=== PATIENT | male | born 1950 | race Caucasian/White ===

== ENCOUNTER 2018-03-14 09:55 | Inpatient (IN) | payer MEDICAID ==
[~2018-03-14] VITALS: Ht 180.3 cm; Wt 94.3 kg
[2018-03-14] VITALS (15 sets, daily range): BP systolic 111–155; BP diastolic 73–93
[2018-03-14] MEDS ORDERED: FENTANYL CITRATE/PF 50MCG/ML 2ML VIAL ONE (11:15)
[2018-03-14] MEDS ORDERED: MIDAZOLAM HCL 2 MG/2 ML VIAL ONE (11:15)
[2018-03-14] MEDS ORDERED: LIDOCAINE HCL 1% 20ML VIAL (Pyxis) INJ ONE (11:16)
[2018-03-14] MEDS ORDERED: IODIXANOL 320MG/ML 100 ML BOTTLE IV ONE ×2 (11:16→12:06)
[2018-03-14] MEDS ORDERED: ASPI-1159 PO (11:46)
[2018-03-14] MEDS ORDERED: NAPR-681 PO (11:46)
[2018-03-14] MEDS ORDERED: ATEN50TA PO (11:46)
[2018-03-14] MEDS ORDERED: METF-416 PO (11:46)
[2018-03-14] MEDS ORDERED: GLIM2TAB2 PO (11:46)
[2018-03-14] MEDS ORDERED: OMEP20CA10 PO (11:46)
[2018-03-14] MEDS ORDERED: LISI10TA5 PO (11:46)
[2018-03-14] MEDS ORDERED: SIMV40TA5 PO (11:46)
[2018-03-14] MEDS ORDERED: IOHEXOL-300 100 ML BOTTLE ONE (12:13)
[2018-03-14] MEDS ORDERED: ATROPINE SULFATE 1MG/10ML SYR IV PRN (13:00)
[2018-03-14] MEDS ORDERED: ONDANSETRON HCL 4MG/2ML INJ IV PRN (13:00)
[2018-03-14] MEDS ORDERED: ACETAMINOPHEN 325MG TABLET PO PRN (13:00)
[2018-03-14] MEDS ORDERED: HEPARIN SODIUM 1,000 UNIT/1ML VIAL IV ONE ×2 (15:27→15:55)
[2018-03-15] VITALS (7 sets, daily range): BP systolic 113–132; BP diastolic 64–85
[2018-03-15 06:30] LABS: BASOPHILS % 0.9 % (0.0-2.0); EOSINOPHILS % 0.9 % (0.0-5.0); HEMOGLOBIN. 14.4 g/dL (14.0-18.0); LYMPHOCYTES % 37.8 % (20.0-50.0); MEAN CORPUSCULAR HEMOGLOBIN 30.5 pg (28.0-32.0); MEAN CORPUSCULAR VOLUME 90.9 fL (80.0-94.0); MEAN PLATELET VOLUME 8.4 fl (7.4-10.4); NEUTROPHILS % 51.4 % (40.0-76.0); PLATELET 219 x1000/uL (130-400); RED BLOOD CELL COUNT 4.73 mill/uL (4.7-6.1); RED CELL DISTRIBUTION WIDTH 13.9 % (11.6-14.6)
[2018-03-15 07:12] LABS: CHLORIDE 105 mEq/L (98-107)
[2018-03-15] MEDS ORDERED: ASPIRIN 325MG TABLET PO SCH (09:00)
== END 2018-03-15 10:42 | disposition home or self-care (01) | DRG 192 ==
LOC: CCL 09:55 → 3WST 09:56
PROVIDERS: ADMIT Specialist; ATTEND Specialist
PROC: 4A023N7 Measurement of Cardiac Sampling and Pressure, Left Heart, Percutaneous Approach (ICD-10-PCS; principal; 2018-03-14)
PROC: B2181ZZ Fluoroscopy of Left Internal Mammary Bypass Graft using Low Osmolar Contrast (ICD-10-PCS; 2018-03-14)
PROC: B2121ZZ Fluoroscopy of Single Coronary Artery Bypass Graft using Low Osmolar Contrast (ICD-10-PCS; 2018-03-14)
PROC: B2111ZZ Fluoroscopy of Multiple Coronary Arteries using Low Osmolar Contrast (ICD-10-PCS; 2018-03-14)
PROC: B2151ZZ Fluoroscopy of Left Heart using Low Osmolar Contrast (ICD-10-PCS; 2018-03-14)
PROC: 4A033BC Measurement of Arterial Pressure, Coronary, Percutaneous Approach (ICD-10-PCS; 2018-03-14)
PROC: 02JA3ZZ Inspection of Heart, Percutaneous Approach (ICD-10-PCS; 2018-03-14)
DX: T82.857A Stenosis of other cardiac prosthetic devices, implants and grafts, initial encounter (principal); I25.82 Chronic total occlusion of coronary artery; I11.9 Hypertensive heart disease without heart failure; I25.710 Atherosclerosis of autologous vein coronary artery bypass graft(s) with unstable angina pectoris; E78.5 Hyperlipidemia, unspecified; E11.9 Type 2 diabetes mellitus without complications; Y83.2 Surgical operation with anastomosis, bypass or graft as the cause of abnormal reaction of the patient, or of later complication, without mention of misadventure at the time of the procedure; Z53.9 Procedure and treatment not carried out, unspecified reason; Z95.1 Presence of aortocoronary bypass graft; Y92.89 Other specified places as the place of occurrence of the external cause; Z79.899 Other long term (current) drug therapy
CPT/HCPCS: 36415; 80048; 82962; 85347; 93459; 93571; C1760; C1769; C1874; C1887; C1893; J1644; J2250; J3010; J3490; Q9967